=== PATIENT | female | born 1990 | race Two or more races ===

== ENCOUNTER 2018-08-31 18:02 | Emergency (ER) | payer BC ==
--- NOTE | 2018-08-31 18:19 | ER Document Report ---
ED General - General Chief Complaint: Chest Wall Pain Stated Complaint: RIGHT SIDE RIBCAGE PAIN Time Seen by Provider: 08/31/18 18:15 Mode of Arrival: Ambulatory Information source: Patient, [facility] Records Notes: 27-year-old female with no reported past medical history presents with complaint of right upper chest pain that started 2 days prior to arrival. Patient describes the pain as sharp, intermittent and worse with deep breathing and movement. Patient denies prior similar symptoms, shortness of breath, cough , fever, nausea, vomiting, abdominal pain, estrogen use, history of PE, DVT. She does admit to recent travel from [facility]. TRAVEL OUTSIDE OF THE [place] IN LAST 30 DAYS: No - HPI Onset: Other Onset/Duration: Intermittent Quality of pain: Sharp Severity: Moderate Associated symptoms: Chest pain, Hurts to breath. denies: Nonproductive cough, Productive cough, Diarrhea, Nausea, Vomiting, Shortness of breath Exacerbated by: Movement, Deep breathing Relieved by: Other - Ibuprofen Similar symptoms previously: No Recently seen / treated by doctor: Yes - Urgent care - Related Data Allergies/Adverse Reactions: No Known Allergies Allergy (Unverified 08/31/18 18:07) Past Medical History - General Information source: Patient, [facility] Records - Social History Smoking Status: Never Smoker Frequency of alcohol use: None Drug Abuse: None Lives with: Spouse/Significant other Family History: Reviewed & Not Pertinent Patient has suicidal ideation: No Patient has homicidal ideation: No - Medical History Medical History: Negative Renal/ Medical History: Denies: Hx Peritoneal Dialysis Review of Systems - Review of Systems Notes: REVIEW OF SYSTEMS: CONSTITUTIONAL : Denies fever, chills, or sweats. Denies recent illness. Denies weight loss, recent hospitalizations. EENT: Denies visual changes, eye pain. Denies sore throat, oral lesions, difficulty swallowing. CARDIOVASCULAR: Denies palpitations. Denies lower extremity edema. RESPIRATORY: Denies cough. Denies shortness of breath, wheezing. GASTROINTESTINAL: Denies abdominal pain or distention. Denies nausea, vomiting , or diarrhea. Denies blood in vomitus, stools, or per rectum. Denies black, tarry stools. Denies constipation. GENITOURINARY: Denies difficulty urinating, painful urination, frequency, blood in urine, or vaginal discharge. MUSCULOSKELETAL: Denies back or neck pain or stiffness. Denies joint pain or swelling. SKIN: Denies rash, lesions or sores. HEMATOLOGIC : Denies easy bruising or bleeding. LYMPHATIC: Denies swollen glands. NEUROLOGICAL: Denies confusion or altered mental status. Denies loss of consciousness. Denies dizziness or lightheadedness. Denies headache. Denies weakness or paralysis. Denies problems difficulty with ambulation, slurred speech. Denies sensory loss, numbness, or tingling. Denies seizures. PSYCHIATRIC: Denies anxiety or stress. Denies depression, suicidal ideation, or homicidal ideation. Denies visual or auditory hallucinations. Left Physical Exam - Vital signs Vitals: Temp Pulse Resp BP Pulse Ox 99.0 F 74 14 112/72 100 08/31/18 18:08 08/31/18 18:08 08/31/18 18:08 08/31/18 18:08 08/31/18 18:08 - Notes Notes: PHYSICAL EXAMINATION: GENERAL: Well-appearing, well-nourished and in no acute distress. HEAD: Atraumatic, normocephalic. EYES: Pupils equal round and reactive to light, extraocular movements intact, conjunctiva are normal. ENT: Nares patent, oropharynx clear without exudates. Moist mucous membranes. NECK: Normal range of motion, supple without lymphadenopathy LUNGS: Breath sounds clear to auscultation bilaterally and equal. No wheezes rales or rhonchi. HEART: Regular rate and rhythm without murmurs ABDOMEN: Soft, nontender, nondistended abdomen. No guarding, no rebound. No masses appreciated. Female : deferred Musculoskeletal: Normal range of motion, no pitting or edema. No cyanosis. NEUROLOGICAL: Cranial nerves grossly intact. Normal speech, normal gait. Normal sensory, motor exams PSYCH: Normal mood, normal affect. SKIN: Warm, Dry, normal turgor, no rashes or lesions noted. Course - Re-evaluation Re-evalutation: 08/31/18 20:00 Laboratory 08/31/18 08/31/18 18:40 19:10 D-Dimer 0.27 Urine Color YELLOW Urine Appearance SLIGHTLY-CLOUDY Urine pH 6.0 Ur Specific Weinert 1.028 Urine Protein NEGATIVE Urine Glucose (UA) NEGATIVE Urine Ketones NEGATIVE Urine Blood NEGATIVE Urine Nitrite NEGATIVE Urine Bilirubin NEGATIVE Urine Urobilinogen NEGATIVE Ur Leukocyte Esterase TRACE H Urine WBC (Auto) 2 Urine RBC (Auto) 1 Urine Bacteria (Auto) 1+ Squamous Epi Cells Auto 2 Urine Mucus (Auto) OCC Urine Ascorbic Acid NEGATIVE Urine HCG, Qual NEGATIVE Chest X-Ray 08/31/18 18:19 IMPRESSION: NO ACUTE RADIOGRAPHIC FINDING IN THE CHEST. 27-year-old female presented from urgent care with concern for pulmonary embolism. She has been experiencing sharp intermittent right upper chest pain and pain with deep inspiration for 2 days. Vital signs within normal limits upon arrival. EKG obtained showed the patient to be in normal sinus rhythm. Chest x-ray without evidence of pneumonia, pneumothorax. Urinalysis within normal limits. HCG negative. D-dimer within normal limits. Patient is PERC negative. Discussed findings with patient and her . Advised her to take Tylenol and Motrin as needed for pain. Encouraged to return with any concerns including fever, worsening shortness of breath, cough. Patient declining home-going pain medication. Patient was evaluated and treated as appropriate for the patient's presenting symptoms and complaint, with consideration of any critical or life threatening conditions that may be associated with their obtained history and exam as noted above. All results were discussed with patient and her . Patient provided the opportunity to ask questions, and express concerns. Patient was educated on treatments based on their presumed diagnosis as noted above. At this time we will discharge the patient with return precautions and follow-up recommendations. Verbal discharge instructions given a the bedside. Medication warnings reviewed. Patient is in agreement with this plan and has verbalized understanding of return precautions. After careful consideration I feel that that patient can be safely discharged from the emergency department, they were advised to followup with a primary care physician in 2-3 days. Dictation on this chart was performed using voice recognition software and may result in unintended grammatical, spelling, syntax or errors. - Vital Signs Vital signs: Temp Pulse Resp BP Pulse Ox 99.0 F 74 14 112/72 100 08/31/18 18:08 08/31/18 18:08 08/31/18 18:08 08/31/18 18:08 08/31/18 18:08 - Laboratory Laboratory results interpreted by me: 08/31/18 18:40 Ur Leukocyte Esterase TRACE H - Diagnostic Test Radiology reviewed: Image reviewed, Reports reviewed - EKG Interpretation by Me EKG shows normal: Sinus rhythm Rate: Normal Rhythm: NSR When compared to previous EKG there are: No significant change Discharge - Discharge Clinical Impression: Chest wall pain, Concern for pulmonary embolism Dyspnea Qualifiers: Dyspnea type: unspecified Qualified Code(s): R06.00 - Dyspnea, unspecified Condition: Good Disposition: HOME, SELF-CARE Instructions: Chest Wall Pain ([facility]), Dyspnea, Nonspecific ([facility]) Additional Instructions: Please take Motrin or Tylenol as needed for pain. Chest x-ray shows no evidence of pneumonia. No evidence of pulmonary embolism on exam or history. Please follow-up with your primary care physician as needed. Follow up with your [id number] hours for further care or return to the ED IMMEDIATELY if symptoms worsen or you have any concerns. If you cannot afford to follow up with your primary care physician a list of low cost clinics have been provided at the end of your discharge papers as well. Most prescribed medications have multiple side effects. The safest thing to do is when filling your prescription speak to your pharmacist regarding possible interactions with your normal home medications and over the counter medications such as Ibuprofen, Tylenol, Benadryl. If you experience any symptoms that cause you discomfort or concern you should discontinue the medication immediately and return to the emergency room or call your primary care physician. Referrals: CEE BARBER MD [ACTIVE STAFF] - Follow up as needed
--- NOTE | 2018-08-31 18:53 | EKG REPORT ---
SEVERITY:- NORMAL ECG - SINUS RHYTHM : Confirmed by: Sanjiv Peñaloza MD 31-Aug-2018 18:53:02
--- NOTE | 2018-08-31 19:03 | RADIOLOGY REPORT (SQ) ---
EXAM DESCRIPTION: CHEST 2 VIEWS COMPLETED DATE/TIME: 08/31/2018 6:55 pm REASON FOR STUDY: Right upper chest pain COMPARISON: None. EXAM PARAMETERS: NUMBER OF VIEWS: two views TECHNIQUE: Digital Frontal and Lateral radiographic views of the chest acquired. RADIATION DOSE: NA LIMITATIONS: none FINDINGS: LUNGS AND PLEURA: No opacities, masses or pneumothorax. No pleural effusion. MEDIASTINUM AND HILAR STRUCTURES: No masses or contour abnormalities. HEART AND VASCULAR STRUCTURES: Heart normal size. No evidence for failure. BONES: No acute findings. HARDWARE: None in the chest. OTHER: No other significant finding. IMPRESSION: NO ACUTE RADIOGRAPHIC FINDING IN THE CHEST. TECHNICAL DOCUMENTATION: JOB ID: [id number] [employer]- All Rights Reserved Reading location - IP/workstation name: [email or web address]
[2018-08-31 19:07] LABS: APPEARANCE,URINE SLIGHTLY-CLOUDY; BILIRUBIN,URINE NEGATIVE (NEGATIVE); COLOR,URINE YELLOW; GLUCOSE, URINE NEGATIVE (NEGATIVE); KETONES,URINE NEGATIVE (NEGATIVE); LEUKOCYTE ESTERASE,URINE TRACE (NEGATIVE); NITRITE,URINE NEGATIVE (NEGATIVE); PROTEIN,URINE NEGATIVE (NEGATIVE); URINE SPECIFIC GRAVITY 1.028; UROBILINOGEN,URINE NEGATIVE mg/dL (<2.0)
[2018-08-31 21:01] VITALS: BP 106/68
== END 2018-08-31 20:10 | disposition home or self-care (01) ==
LOC: ER 18:02
DX: R07.89 Other chest pain (principal); R06.00 Dyspnea, unspecified; Z86.711 Personal history of pulmonary embolism
CPT/HCPCS: 36415; 71046; 81001; 81025; 85379; 93005; 93010; 99284